=== PATIENT | female | born 1965 | race Asian ===

== ENCOUNTER 2018-08-04 08:07 | Emergency (ER) | payer OTHER ==
[2018-08-04 08:16] VITALS: TEMP 98.3; BMI 29.7
--- NOTE | 2018-08-04 08:28 | PDOC ---
History of Present Illness - General History Source: Patient Exam Limitations: No Limitations - History of Present Illness Initial Comments: 08/04/18 09:16 The patient is a 53 year old female, with a significant past medical history of hypertension, who presents to the emergency department with face redness, burning, and swelling since last night. The patient states she was at work when she developed elevated BP on Thursday, was seen and admitted to [facility], and discharged at about 10PM last night after having a CT with contrast at about 5PM. She states the CT was negative for acute findings. The patient states she developed redness to her face before bed last night which progressed into a burning sensation and swelling to her face and ears, as well as, a tightness sensation to her skin on her face and neck. She also states she felt mildly SOB on her way to the ED today. She states she took a 25mg Benadryl at about 8AM prior to ED arrival. She states she did not take her daily medications this morning. The patient denies chest pain, headache and dizziness. The patient denies fever , chills, nausea, vomit, diarrhea and constipation. The patient denies dysuria, frequency, urgency and hematuria. Allergies: versed <Luna Jolley - Last Filed: 08/04/18 09:16> <Panchito Landrum - Last Filed: 08/04/18 13:32> - General Chief Complaint: Allergic Reaction Stated Complaint: SOB,ALLERGIC REACTION Time Seen by Provider: 08/04/18 08:28 Past History <Luna Jolley - Last Filed: 08/04/18 09:16> - Past Medical History COPD: No Diabetes: Yes GI Disorders: Yes (acid reflux) HTN: Yes Hypercholesterolemia: Yes - Immunization History Immunization Up to Date: Yes - Suicide/Smoking/Psychosocial Hx Smoking History: Never smoked Hx Alcohol Use: No Drug/Substance Use Hx: No <Panchito Landrum - Last Filed: 08/04/18 13:32> - Past Medical History Allergies/Adverse Reactions: Allergies Allergy/AdvReac Type Severity Reaction Status Date / Time midazolam [From Versed] Allergy Severe Rash Verified 08/04/18 08:16 Home Medications: Ambulatory Orders Aspirin 81 mg PO DAILY 08/04/18 Atorvastatin Ca [Lipitor] 10 mg PO HS 08/04/18 Cholecalciferol (Vitamin D3) [Vitamin D3] 1,000 unit PO DAILY 08/04/18 Dexamethasone [Decadron] 6 mg PO ONCE #2 tablet 08/04/18 Hydrochlorothiazide 25 mg PO HS 08/04/18 Losartan Potassium 100 mg PO DAILY 08/04/18 Mag Carb/Aluminum Hydrox/Algin [Gaviscon Liquid] 15 ml PO Q6H PRN 08/04/18 Ubidecarenone [Coenzyme Q-10] 200 mg PO DAILY 08/04/18 Review of Systems - Review of Systems Able to Perform ROS?: Yes Comments:: 08/04/18 09:17 CONSTITUTIONAL: No fever, no chills, no fatigue EYES: No visual changes ENT: No ear pain, no sore throat CARDIOVASCULAR: No chest pain, no palpitations RESPIRATORY: No cough, no SOB GI: No abdominal pain, no nausea, no vomiting, no constipation, no diarrhea GENITOURINARY: No dysuria, no frequency, no hematuria MUSKULOSKELETAL: No backpain, no joint pain, no myalgias SKIN: (+) facial redness, burning, and swelling. No rash NEURO: No headache <Luna Jolley - Last Filed: 08/04/18 09:16> *Physical Exam - Vital Signs Last Vital Signs Temp Pulse Resp BP Pulse Ox 98.3 F 105 H 20 154/102 H 97 08/04/18 08:13 08/04/18 08:13 08/04/18 08:13 08/04/18 08:13 08/04/18 08:13 - Physical Exam Comments: 08/04/18 09:17 CONSTITUTIONAL: Well-appearing; well-nourished; in no apparent distress HEAD: Normocephalic; atraumatic EYES: PERRL; EOM intact ENMT: External appears normal; normal oropharynx NECK: Supple; non-tender; no cervical lymphadenopathy CARD: Normal S1, S2; no murmurs, rubs, or gallops RESP: Normal chest excursion with respiration; breath sounds clear and equal bilaterally; no wheezes, rhonchi, or rales ABD: Soft, non-distended; non-tender; no palpable organomegaly, no palpable hernias EXT: Normal ROM in all four extremities; non-tender to palpation; distal pulses intact SKIN: (+) diffuse erythroderma of the face and neck with edema of the ear cartilage bilaterally. Warm, dry NEURO: No focal neurological deficiencies. <Luna Jolley - Last Filed: 08/04/18 09:16> - Vital Signs Last Vital Signs Temp Pulse Resp BP Pulse Ox 98.3 F 105 H 20 154/102 H 97 08/04/18 08:13 08/04/18 08:13 08/04/18 08:13 08/04/18 08:13 08/04/18 08:13 <Panchito Landrum - Last Filed: 08/04/18 13:32> Moderate Sedation - Procedure Monitoring Vital Signs: Procedure Monitoring Vital Signs Temperature 98.3 F 08/04/18 08:13 Pulse Rate 105 H 08/04/18 08:13 Respiratory Rate 20 08/04/18 08:13 Blood Pressure 154/102 H 08/04/18 08:13 O2 Sat by Pulse Oximetry (%) 97 08/04/18 08:13 <Luna Jolley - Last Filed: 08/04/18 09:16> - Procedure Monitoring Vital Signs: Procedure Monitoring Vital Signs Temperature 98.3 F 08/04/18 08:13 Pulse Rate 105 H 08/04/18 08:13 Respiratory Rate 20 08/04/18 08:13 Blood Pressure 154/102 H 08/04/18 08:13 O2 Sat by Pulse Oximetry (%) 97 08/04/18 08:13 <Panchito Landrum - Last Filed: 08/04/18 13:32> ED Treatment Course - LABORATORY CBC & Chemistry Diagram: 08/04/18 09:00 08/04/18 09:00 - Medications Given in the ED: ED Medications Discontinued Medications Generic Name Dose Route Start Last Admin Trade Name Freq PRN Reason Stop Dose Admin Famotidine/Sodium Chloride 20 mg in 50 mls @ 100 mls/hr 08/04/18 08:44 09:05 Pepcid 20 Mg Premixed Ivpb - IVPB 08/04/18 09:13 100 mls/hr ONCE ONE Administration <Luna Jolley - Last Filed: 08/04/18 09:16> - LABORATORY CBC & Chemistry Diagram: 08/04/18 09:00 08/04/18 09:00 <Panchito Landrum - Last Filed: 08/04/18 13:32> Medical Decision Making - Medical Decision Making 08/04/18 11:53 53-year-old female with history of hypertension presents to the ER with diffuse facial erythema and edema which started 12Hours after administration of IV contrast. No oropharyngeal angioedema was identified on the initial evaluation. There was no stridor. Patient received Decadron, Pepcid and Benadryl. Upon reassessment, patient's symptoms have now resolved. She is resting comfortably. Will continue to observe at this time. 08/04/18 13:29 Patient is resting comfortably. She is currently asymptomatic. Blood pressure has improved without intervention. No evidence of angioedema or rashes currently present. Will discharge. <Panchito Landrum - Last Filed: 08/04/18 13:32> *DC/Admit/Observation/Transfer - Attestations Scribe Attestion: 08/04/18 09:20 Documentation prepared by Luna Jolley, acting as medical office manager for Panchito Landrum MD <Luna Jolley - Last Filed: 08/04/18 09:16> <Panchito Landrum - Last Filed: 08/04/18 13:32> Diagnosis at time of Disposition: Allergic reaction to contrast dye Qualifiers: Encounter type: initial encounter Qualified Code(s): T50.8X5A - Adverse effect of diagnostic agents, initial encounter - Discharge Dispostion Disposition: HOME Condition at time of disposition: Stable - Referrals Referrals: Juan Cherry MD [Primary Care Provider] - - Patient Instructions Printed Discharge Instructions: DI for Adverse Drug Reaction -- Allergic Additional Instructions: Please take Zantac- 150 mg by mouth twice daily for the next 5 days. Take Benadryl as needed for rash. Take 6 mg of Decadron in 2 days. Follow-up with your primary care physician within next 72-96 hours. Return immediately for worsening symptoms.
[2018-08-04] MEDS ORDERED: methylPREDNISolone NA SUCC 125 MG/2 ML VIAL IVPUSH ONE (08:43)
[2018-08-04] MEDS ORDERED: FAMOTIDINE 20 MG/50 ML IVPB 20 MG/50 ML MG IVPB ONE ×2 (08:44→08:48)
[2018-08-04 09:10] LABS: BASO % 0.5 % (0-2.0); EOS % 2.6 % (0-4.5); HEMATOCRIT 43.4 % (32.4-45.2); HEMOGLOBIN 15.8 GM/dL (10.7-15.3); LYMPH % 10.4 % (8-40); MCH 30.4 pg (25.7-33.7); MCHC 36.3 g/dl (32.0-36.0); MEAN CELL VOLUME 83.7 fl (80-96); MEAN PLT VOLUME 7.3 fl (7.5-11.1); MONO % 3.3 % (3.8-10.2); NEUT % 83.2 % (42.8-82.8); PLATELET COUNT 233 K/MM3 (134-434); RBC 5.19 M/mm3 (3.60-5.2); RDW 13.5 % (11.6-15.6); WHITE BLOOD COUNT 9.1 K/mm3 (4.0-10.0)
[2018-08-04] MEDS ORDERED: methylPREDNISolone NA SUCC 125 MG/2 ML VIAL ONE (09:15)
[2018-08-04 09:36] LABS: ALBUMIN 3.9 g/dl (3.4-5.0); ALK PHOS 80 U/L (45-117); ANION GAP 7 MMOL/L (8-16); BILIRUBIN,TOTAL 1.3 mg/dL (0.2-1); BLOOD UREA NITROGEN 11 mg/dL (7-18); CALCIUM 8.5 mg/dL (8.5-10.1); CHLORIDE 100 mmol/L (98-107); CO2 25 mmol/L (21-32); CREATININE 0.7 mg/dL (0.55-1.3); GLUCOSE,RANDOM 183 mg/dL (74-106); POTASSIUM 4.1 mmol/L (3.5-5.1); SGOT/AST 38 U/L (15-37); SGPT/ALT 58 U/L (13-61); SODIUM 132 mmol/L (136-145); TOT PROT 7.4 g/dl (6.4-8.2)
[2018-08-04 12:30] VITALS: BP 137/88; PULSE 80
== END 2018-08-04 13:47 | disposition home or self-care (01) ==
LOC: JER 08:07
PROC: 3E033GC Introduction of Other Therapeutic Substance into Peripheral Vein, Percutaneous Approach (ICD-10-PCS; principal; 2018-08-04)
PROC: 3E033GC Introduction of Other Therapeutic Substance into Peripheral Vein, Percutaneous Approach (ICD-10-PCS; 2018-08-04)
PROC: 3E0333Z Introduction of Anti-inflammatory into Peripheral Vein, Percutaneous Approach (ICD-10-PCS; 2018-08-04)
DX: T50.8X5A Adverse effect of diagnostic agents, initial encounter (principal)
CPT/HCPCS: 36415; 80053; 85025; 99283-25